=== PATIENT | female | born 1985 | race Caucasian/White ===

== ENCOUNTER 2020-09-11 22:17 | Inpatient (IN) | payer OTHER, SELFPAY ==
--- NOTE | 2020-09-11 22:29 | ED.CHESTPAIN ---
HPI - Chest Pain General Chief Complaint: Chest Pain Stated Complaint: breast pain Time Seen by Provider: 09/11/20 22:29 History of Present Illness HPI narrative: This is a 35-year-old female IVDA, alcohol, smoker all 3 of which were last done today. She last used 4 bags of heroin this afternoon. She states that she has had left-sided chest discomfort for the past 2 weeks but today states that it acutely worsened and she describes it as starting from behind her left breast and sharp oblique going into her chest. It worsens with movement as well as deep inspiration. In addition, she describes that her left breast she feels has increased in size and is more tender. She denies any injection into her breast tissue. Otherwise, she denies fevers, chills, cough, palpitations, nausea, vomiting, abdominal pain, diarrhea, urinary pain / burning /frequency. Related Data Allergies Allergy/AdvReac Type Severity Reaction Status Date / Time No Known Allergies Allergy Verified 09/11/20 23:25 [No Known Allergies*] Review of Systems Review of Systems: Pertinent positives and negatives as stated in HPI 10 point review systems is otherwise negative. PMFSH Past Medical History Source: nursing notes reviewed Medical History Drug abuse No known health problems Social History Social History Advance Directives: No Advance Directives Information Provided: Yes Physical Exam Vital Signs: Vital Signs: Vital Signs Temp Pulse Resp BP Pulse Ox 09/12/20 02:54 92 119/76 93 09/12/20 01:06 96 129/80 93 09/11/20 23:26 98.4 F 95 18 145/93 H Body Mass Index 28.3 VITAL SIGNS: Reviewed. GENERAL: Well developed, well nourished, in no acute distress. HEAD: Normocephalic/atraumatic, EYES: PERRLA, EOMI intact without pain, no nystagmus/pallor/icterus noted EARS: Ext canals without abnormality, TMs non-bulging and non-erythematous NOSE: Nares patent bilateral OROPHARYNX: no oral lesions noted, posterior pharynx clear and non-erythematous without noted tonsillar enlargement/erythema/exudates NECK: Supple, no adenopathy LUNGS: Normal breath sounds. No adventitious sounds or accessory muscle use. SpO2<> BREAST: (strip stamp straightener: Erma) On evaluation there is no erythema, induration, or appreciable mass when compared to the right breast but on palpation there is pain. CARDIOVASCULAR: Regular rate and rhythm without noted murmurs, no JVD or lower extremity edema. ABDOMEN: Soft, non-tender, non-distended with bowel sounds. No rigidity. No guarding. No palpable masses or hernias noted MUSCULOSKELETAL: No tenderness, deformities, or effusions noted on gross inspection. EXTREMITIES: No cyanosis, clubbing or edema. SKIN: Inspection of the skin reveals no rashes, ulcerations, jaundice, pallor, or petechiae. NEUROLOGIC: Alert and oriented x 4. Strength and sensation to light touch were grossly intact x 4. Course Course Course Narrative: This is a 35-year-old female with history and clinical presentation most concerning for possible pneumonia, or less likely costochondritis and doubt cardiac ischemia or PE. On review of all lab work there is a mild leukocytosis with left shift and taken in conjunction with a chest x-ray that shows opacifications and subsequent CT of the chest showing mid left lung pneumonia and SpO2 of 93% this case was discussed with the hospitalist for admission for IV antibiotics. There is some concern that this may in fact be a mass due to the absence fever and leukocytosis but given patient's underlying social history a remains unclear. On re-evaluation after patient received combination analgesics she has had good resolution of her pain. I discussed the case with the inpatient hospitalist who is agreeable for admission and patient is declining COVID-19 testing at this time. MDM - Chest Pain Lab Data Result diagrams: 09/11/20 23:52 09/12/20 01:31 Labs: Lab Results 09/11/20 09/11/20 09/11/20 Range/Units 23:52 23:52 23:52 WBC 11.0 H (4.8-10.8) X10*3/uL RBC 3.71 L (4.20-5.50) X10*6/uL Hgb 11.6 L (12.0-16.0) g/dl Hct 35.3 L (37-47) % MCV 95.1 (80-98) fL MCH 31.3 (27.0-33.0) pg MCHC 32.9 (31.0-35.0) g/dl RDW 12.4 (11.0-16.0) % Plt Count 252 (160-400) X10*3/uL MPV 9.5 (9.4-12.3) fL Immature Gran % (Auto) 0.4 (0.0-0.4) % Neut % (Auto) 82.3 H (45-73) % Lymph % (Auto) 10.3 L (20-40) % [place] % (Auto) 6.4 (2-11) % Eos % (Auto) 0.3 (0-4) % Baso % (Auto) 0.3 (0-2) % Lymph # (Auto) 1.1 L (1.2-4.9) X10*3/uL [place] # (Auto) 0.7 (0.1-1.2) X10*3/uL Eos # (Auto) 0.0 (0.0-0.4) X10*3/uL Baso # (Auto) 0.0 (0.0-0.2) X10*3/uL Abs Immat Gran (auto) 0.04 H (0.00-0.03) X10*3/uL Absolute Neuts (auto) 9.1 H (2.0-8.3) X10*3/uL Absolute Nucleated RBC 0.000 (0.0-0.012) X10*3/uL Nucleated RBC % (auto) 0.0 (0.0-0.2) /100WBC Sodium Cancelled Potassium Cancelled Chloride Cancelled Carbon Dioxide Cancelled Anion Gap Cancelled BUN Cancelled Creatinine Cancelled Estim Creat Clear Calc Cancelled Estimated GFR Cancelled Random Glucose Cancelled Calcium Cancelled Total Bilirubin Cancelled AST Cancelled ALT Cancelled Alkaline Phosphatase Cancelled Troponin I High Sens (<3.5-17.0) ng/L Total Protein Cancelled Albumin Cancelled Lipase Cancelled Urine Color YELLOW Urine Appearance CLEAR Urine pH 6.5 (5.0-8.0) Ur Specific [place] 1.025 (1.005-1.025) Urine Protein NEG (NEG-TRACE) MG/DL Urine Glucose (UA) NEG (NEG) MG/DL Urine Ketones 5 (NEG) MG/DL Urine Blood NEG (NEG) Urine Nitrite NEG (NEG) Ur Leukocyte Esterase NEG (NEG) Urine Test NEGATIVE (NEGATIVE) 09/11/20 09/12/20 Range/Units 23:52 01:31 WBC (4.8-10.8) X10*3/uL RBC (4.20-5.50) X10*6/uL Hgb (12.0-16.0) g/dl Hct (37-47) % MCV (80-98) fL MCH (27.0-33.0) pg MCHC (31.0-35.0) g/dl RDW (11.0-16.0) % Plt Count (160-400) X10*3/uL MPV (9.4-12.3) fL Immature Gran % (Auto) (0.0-0.4) % Neut % (Auto) (45-73) % Lymph % (Auto) (20-40) % [place] % (Auto) (2-11) % Eos % (Auto) (0-4) % Baso % (Auto) (0-2) % Lymph # (Auto) (1.2-4.9) X10*3/uL [place] # (Auto) (0.1-1.2) X10*3/uL Eos # (Auto) (0.0-0.4) X10*3/uL Baso # (Auto) (0.0-0.2) X10*3/uL Abs Immat Gran (auto) (0.00-0.03) X10*3/uL Absolute Neuts (auto) (2.0-8.3) X10*3/uL Absolute Nucleated RBC (0.0-0.012) X10*3/uL Nucleated RBC % (auto) (0.0-0.2) /100WBC Sodium 134 L Potassium 4.0 Chloride 101 Carbon Dioxide 25 Anion Gap 12 BUN 8 L Creatinine 0.59 Estim Creat Clear Calc 118.5 Estimated GFR > 60 Random Glucose 88 Calcium 8.6 Total Bilirubin 0.5 AST 35 H ALT 32 H Alkaline Phosphatase 72 Troponin I High Sens < 3.5 (<3.5-17.0) ng/L Total Protein 6.7 Albumin 4.0 Lipase < 4 L Urine Color Urine Appearance Urine pH (5.0-8.0) Ur Specific [place] (1.005-1.025) Urine Protein (NEG-TRACE) MG/DL Urine Glucose (UA) (NEG) MG/DL Urine Ketones (NEG) MG/DL Urine Blood (NEG) Urine Nitrite (NEG) Ur Leukocyte Esterase (NEG) Urine Test (NEGATIVE) Discharge Plan Discharge Clinical Impression: Pneumonia Qualifiers: Pneumonia type: due to unspecified organism Laterality: left Lung location: unspecified part of lung Qualified Code(s): J18.9 - Pneumonia, unspecified organism Patient Disposition: Admitted As Inpatient
--- NOTE | 2020-09-11 22:43 | ECG_ITS ---
Test Reason : CHEST PAIN Blood Pressure : / mmHG Vent. Rate : 097 BPM Atrial Rate : 097 BPM P-R Int : 144 ms QRS Dur : 080 ms QT Int : 336 ms P-R-T Axes : 055 -13 017 degrees QTc Int : 426 ms Normal sinus rhythm Left axis deviation Voltage criteria for left ventricular hypertrophy Abnormal ECG No previous ECGs available Referred By: Yessenia Ryder Electronically Signed By:STAN CAIN MD
--- NOTE | 2020-09-11 22:54 | XR_ITS ---
EXAMINATION: CHEST 2 VIEWS CLINICAL INFORMATION: Chest pain. COMPARISON: None. TECHNIQUE: PA and lateral views of the chest were obtained. FINDINGS: The cardiac silhouette is not enlarged. The mediastinal and hilar contours are unremarkable. There are neither pleural effusions nor pneumothoraces. There is an ill-defined opacity within the lateral left midlung. The osseous structures are unremarkable. IMPRESSION: Ill-defined opacity within the lateral left midlung. This is nonspecific and could correspond to pneumonia in the appropriate clinical setting, though follow-up is warranted as an underlying mass cannot be excluded. Recommendation is for a followup chest series to be obtained following treatment and/or resolution of symptoms to assure resolution of this appearance.
[2020-09-11 23:26] VITALS: BP 145/93; PULSE 95; RESP 18; TEMP 36.9; BMI 28.3
[2020-09-11 23:56] LABS: MANUAL DIFF FLAG NO
[2020-09-12] VITALS (7 sets, daily range): BP systolic 119–139; BP diastolic 75–97; PULSE 85–96; RESP 18; TEMP 36.2–37.1; O2SAT 93–97
[2020-09-12 00:09] LABS: Basophils Percent Auto 0.3 % (0-2); Eosinophils Percent Auto 0.3 % (0-4); Hematocrit 35.3 % (37-47); Hemoglobin 11.6 g/dl (12.0-16.0); Imm Gran Abs Auto 0.04 X10*3/uL (0.00-0.03); Imm Gran Pct Auto 0.4 % (0.0-0.4); Lymphocytes Absolute Auto 1.1 X10*3/uL (1.2-4.9); Lymphocytes Percent Auto 10.3 % (20-40); Mean Corpuscular HGB Conc 32.9 g/dl (31.0-35.0); Mean Corpuscular Hemoglobin 31.3 pg (27.0-33.0); Mean Corpuscular Volume 95.1 fL (80-98); Mean Platelet Volume 9.5 fL (9.4-12.3); Monocytes Absolute Auto 0.7 X10*3/uL (0.1-1.2); Monocytes Percent Auto 6.4 % (2-11); Neutrophils Absolute Auto 9.1 X10*3/uL (2.0-8.3); Neutrophils Percent Auto 82.3 % (45-73); Platelet Count 252 X10*3/uL (160-400); Red Blood Count 3.71 X10*6/uL (4.20-5.50); Red Cell Distribution Width 12.4 % (11.0-16.0)
[2020-09-12 00:11] LABS: Glucose Urine UA NEG (NEG); Leukocyte Esterase Urine NEG (NEG); Nitrite Urine NEG (NEG); PH 6.5 (5.0-8.0); Specific Gravity - Urine 1.025 (1.005-1.025); Urine Blood NEG (NEG); Urine Ketones 5 MG/DL (NEG); Urine Protein NEG (NEG-TRACE)
[2020-09-12 00:16] LABS: Appearance Urine CLEAR; Color Urine YELLOW
[2020-09-12 00:31] LABS: Troponin-I High Sensitivity < 3.5 ng/L (<3.5-17.0)
[2020-09-12 01:06] LABS: UPreg QC Valid YES; Urine Pregnancy NEGATIVE (NEGATIVE)
--- NOTE | 2020-09-12 01:06 | CT_ITS ---
EXAMINATION: CT CHEST WITH CONTRAST CLINICAL INFORMATION: Chest pain COMPARISON: X-ray 09/11/2020 TECHNIQUE: Multidetector volumetric CT imaging of the chest was obtained after the administration of 50 mL of Omnipaque 350 intravenous contrast without immediate adverse reactions. Axial MIP volume rendering provided. Sagittal and coronal reformatted images were obtained. This CT examination was performed using dose optimization techniques as appropriate, variously including the following: *Automated exposure control *Adjustment of mA and/or kV according to patient size (this includes techniques or standardized protocols for targeted exams where dose is matched to indication/reason for exam; i.e. extremities or head) *Use of iterative reconstruction technique DLP: 238 mGy-cm FINDINGS: LUNGS: Limited detailed assessment of the lung parenchyma due to respiratory motion artifact. There is a region of dense consolidation in the left upper lobe, in keeping with recent chest radiograph appearance. Patchy consolidation is present in the left lower lobe. Mild bibasilar atelectasis is present. MEDIASTINUM: The visualized thyroid gland is unremarkable. There are subcentimeter mediastinal lymph nodes within the range of normal variation. Cardiac size is within normal limits; no pericardial effusion. PLEURA: There is no pleural effusion. No pleural mass or thickening. AXILLA: No lymphadenopathy. UPPER ABDOMEN: Unremarkable OSSEOUS STRUCTURES: Unremarkable. IMPRESSION: Dense left upper lobe and patchy left lower lobe consolidations, in keeping with recent chest x-ray appearance and suspicious for pneumonia in the proper clinical setting. Radiographic followup after treatment/resolution of symptoms is recommended.
--- NOTE | 2020-09-12 01:07 | PC.NURSE ---
pt resting in bed, still experiencing 10/10 left sided chest wall steven. no dyspnea, nausea or diaphoresis. will ask provider for pain medication.
[2020-09-12 02:15] LABS: Alanine Aminotransferase 32 U/L (0-31); Alkaline Phosphatase 72 U/L (39-117); Anion Gap 12 (12-20); Aspartate Amino Transferase 35 U/L (5-31); Bilirubin Total 0.5 mg/dL (0.0-1.0); Blood Urea Nitrogen 8 mg/dL (9-16); Calcium 8.6 mg/dL (8.4-10.2); Carbon Dioxide 25 mmol/L (22-29); Chloride 101 mmol/L (96-108); Creatinine Clr Calc Pharmacy 118.5; Estimated Glomerular Filt Rate > 60; Glucose Random 88 mg/dL (60-115); Lipase < 4 U/L (8-78); Sodium 134 mmol/L (135-145); Total Protein 6.7 g/dL (6.5-8.0)
[2020-09-12] MEDS: Acetaminophen 325 MG TABLET 975 MG PO (02:51)
[2020-09-12] MEDS: Ketorolac Tromethamine 15 MG/ML VIAL IV ×3 (02:51→19:07)
[2020-09-12] MEDS: iohexoL 350 MG/ML 100 ML INFUS..BTL 65 ML IV (02:53)
[2020-09-12] MEDS: 0.9 % Sodium Chloride 1,000 ML 999 ML IVCONT (04:00)
--- NOTE | 2020-09-12 04:06 | PM.IMHP ---
History of Present Illness Date of Service: 09/12/20 Chief Complaint: chest pain 35 y/o female with known PMHX of smoker, alcohol abuser and Heroin abuse who presented from home due to left sided chest pain. Per history obtained from the patient, fort the past week has been having worsening left sided chest pain, sharp like, more prominent during inspiration, associated with mild SOB on exertion. Patient denies any chills/fever, nausea, vomiting, diarrhea, any sick contacts or any recent travel. On presentation to the ED patient is noted to be mildly hypertensive which improved without intervention, no evidence of fever, WBC of 11, NA of 134, saturation of oxygen 100% on room air. Covid test offered by ED staff but patient states that will think about it . CT chest obtained is suspicious for left lung consolidation concerning for underlying pneumonia. Medicine called for evaluation. Patient seen and examined at the bedside, ROS as above otherwise negative. Physical exam unremarkable. CURB 65: 0. No evidence of tremors on exam, mild tachycardia. PMHX: Smoker, Alcohol abuse, Heroin abuse PSx: none Toxic habits: As above Review of Systems Cardiovascular: Cardiovascular: Reports chest pain, Reports dyspnea and Reports dyspnea on exertion Respiratory: Respiratory: Reports dyspnea and Reports dyspnea on exertion PMFSH Medical History Drug abuse No known health problems Functional capacity: independent ambulation Social History Advance Directives: No Advance Directives Information Provided: Yes Meds Allergies Allergy/AdvReac Type Severity Reaction Status Date / Time No Known Allergies Allergy Verified 09/11/20 23:25 [No Known Allergies*] Physical Exam Vital Signs and Narrative: Vital Signs: Last Vital Signs Temp 98.4 F 09/11/20 23:26 Pulse 92 09/12/20 02:54 Resp 18 09/11/20 23:26 BP 119/76 09/12/20 02:54 Pulse Ox 93 09/12/20 02:54 Body Mass Index 28.3 Const: General: cooperative, healthy appearing and comfortable Orientation/consciousness: patient oriented x3 HENMT: Head: Yes normal to inspection Eyes: General: appearance normal, both eyes and all related structures Neck: Yes normal visual inspection Chest: Chest palpation & inspection: normal inspection of the chest Resp: Effort & Inspection: normal respiratory effort Cardio: Jugular venous distension: no JVD Rate: regular rate Rhythm: regular rhythm Heart sounds: S1 normal heart sound present and S2 normal heart sound present GI: Inspection: Yes normal to inspection Skin: General skin exam: no rashes or lesions noted Neuro: General: patient oriented x3 Cognition (Neuro): normal cognition Gait exam (Neuro): Normal gait present Motor exam (neuro): 5/5 motor strength present throughout Extrem: General: Yes normal to inspection Psych: Appearance: grossly normal Results Labs Labs: Laboratory Tests 09/11/20 09/11/20 09/11/20 23:52 23:52 23:52 WBC 11.0 H RBC 3.71 L Hgb 11.6 L Hct 35.3 L MCV 95.1 MCH 31.3 MCHC 32.9 RDW 12.4 Plt Count 252 MPV 9.5 Immature Gran % (Auto) 0.4 Neut % (Auto) 82.3 H Lymph % (Auto) 10.3 L [place] % (Auto) 6.4 Eos % (Auto) 0.3 Baso % (Auto) 0.3 Lymph # (Auto) 1.1 L [place] # (Auto) 0.7 Eos # (Auto) 0.0 Baso # (Auto) 0.0 Abs Immat Gran (auto) 0.04 H Absolute Neuts (auto) 9.1 H Absolute Nucleated RBC 0.000 Nucleated RBC % (auto) 0.0 Sodium Cancelled Potassium Cancelled Chloride Cancelled Carbon Dioxide Cancelled Anion Gap Cancelled BUN Cancelled Creatinine Cancelled Estim Creat Clear Calc Cancelled Estimated GFR Cancelled Random Glucose Cancelled Calcium Cancelled Total Bilirubin Cancelled AST Cancelled ALT Cancelled Alkaline Phosphatase Cancelled Troponin I High Sens Total Protein Cancelled Albumin Cancelled Lipase Cancelled Urine Color YELLOW Urine Appearance CLEAR Urine pH 6.5 Ur Specific [place] 1.025 Urine Protein NEG Urine Glucose (UA) NEG Urine Ketones 5 Urine Blood NEG Urine Nitrite NEG Ur Leukocyte Esterase NEG Urine Test NEGATIVE 09/11/20 09/12/20 23:52 01:31 WBC RBC Hgb Hct MCV MCH MCHC RDW Plt Count MPV Immature Gran % (Auto) Neut % (Auto) Lymph % (Auto) [place] % (Auto) Eos % (Auto) Baso % (Auto) Lymph # (Auto) [place] # (Auto) Eos # (Auto) Baso # (Auto) Abs Immat Gran (auto) Absolute Neuts (auto) Absolute Nucleated RBC Nucleated RBC % (auto) Sodium 134 L Potassium 4.0 Chloride 101 Carbon Dioxide 25 Anion Gap 12 BUN 8 L Creatinine 0.59 Estim Creat Clear Calc 118.5 Estimated GFR > 60 Random Glucose 88 Calcium 8.6 Total Bilirubin 0.5 AST 35 H ALT 32 H Alkaline Phosphatase 72 Troponin I High Sens < 3.5 Total Protein 6.7 Albumin 4.0 Lipase < 4 L Urine Color Urine Appearance Urine pH Ur Specific [place] Urine Protein Urine Glucose (UA) Urine Ketones Urine Blood Urine Nitrite Ur Leukocyte Esterase Urine Test Assessment and Plan (1) Pneumonia: Qualifiers: Laterality: left Lung location: unspecified part of lung Pneumonia type: due to unspecified organism Qualified Code(s): J18.9 - Pneumonia, unspecified organism Status: Acute (2) IV drug abuse: Status: Acute (3) Smoker: Status: Acute (4) Alcohol abuse: Status: Acute CT imaging findings as per above Will start with Rocephin for gram neg coverage and Zithromax for atypical coverage Follow up Bcx obtained in the ED as well as atypical PNA work up Follow up covid test if patient is agreeable if not then might consider Isolation at present Infectious disease consult in the am / Lithographic Photographer Apprentice consult in the am Observation as of now
--- NOTE | 2020-09-12 04:16 | PC.NURSE ---
pt understands plan for admission, understands that her chest xray and ct scan are abnormal. both er md and hospitalist discussed plan and need for covid swab before transfer to the floor. pt refusing covid swab, states it's personal when asked why she is hesitant.
--- NOTE | 2020-09-12 06:32 | PC.NURSE ---
report given to jasmine on the floor, awaiting rapid covid swab results for transport. pt comfortable, resting in bed and in no distress. pt's pain 3/10 and pt no longer grabbing her chest like she was when she first arrived. pt has spend an extended amount of time in the bathroom. Pt encouraged to ask providers for assistance if she feels like she may be experiencing withdrawl symptoms.
[2020-09-12] MEDS: 0.9 % Sodium Chloride Flush 3 ML SYRINGE IVFLUSH ×3 (09:04→23:48)
[2020-09-12] MEDS: cefTRIAXone sodium 1 GM in 0.9 % Sodium Chloride 50 ML IV (09:04)
[2020-09-12] MEDS: oxyCODONE HCl Immed Release 5 MG TABLET PO ×3 (09:38→20:38)
--- NOTE | 2020-09-12 09:47 | MHC.CM.PN ---
Female 35 DX CAP vs Lung Mass. She is independent all functional mobility. She lives with her grandparents. No HCP ED provided Pt declined. DP home no services family transport. CM will follow.
--- NOTE | 2020-09-12 09:50 | PM.CNPUL ---
History of Present Illness History of Present Illness Chief complaint: breast pain/LEFT MIDLUNG CAP VS MASS Review of Systems Constitutional: Constitutional: Denies night sweats ENT: Denies change in voice, Denies lip swelling, Denies mouth pain, Reports nasal congestion, Reports nasal discharge and Denies tongue swelling Cardiovascular: Cardiovascular: Reports chest pain Respiratory: Respiratory: Reports cough, Reports pain on inspiration, Reports pain with cough and Denies wheezing Gastrointestinal: Gastrointestinal: Denies abdominal pain Musculoskeletal: Musculoskeletal: Denies no additional musculoskeletal complaints Neurologic: Denies Neuro-related abnormal movements Psychiatric: Psychiatric: Denies no additional psychiatric complaints Hematologic/Lymphatic: Hematologic/Lymphatic: Denies easy bleeding and Denies lymphadenopathy Allergic/Immunologic: Allergic/Immunologic: Denies lip swelling, Denies tongue swelling and Denies wheezing PMFSH Past Medical History Medical History (Updated 09/12/20 @ 09:52 by Magdaleno Sam MD) Drug abuse No known health problems Pleuritic chest pain Functional capacity: independent ambulation Social History Social History Advance Directives: No Advance Directives Information Provided: Yes service: No Current occupational status: unemployed Meds Allergies Allergy/AdvReac Type Severity Reaction Status Date / Time No Known Allergies Allergy Verified 09/12/20 09:50 [No Known Allergies*] Home Medications Medication Instructions Recorded Confirmed Type No Known Home Meds 09/12/20 09/12/20 History Physical Exam Vital Signs: Vital Signs: Vital Signs Temp Pulse Resp BP Pulse Ox 09/12/20 08:14 97.1 F 85 18 134/97 H 97 09/12/20 06:33 98.7 F 09/12/20 02:54 92 119/76 93 09/12/20 01:06 96 129/80 93 09/11/20 23:26 98.4 F 95 18 145/93 H Body Mass Index 28.3 Const: General: alert HENMT: General nose exam: Abnormal external nose present and Nasal discharge present Eyes: Pupils: Equal, round and reactive pupils present Neck: Neck: Yes normal visual inspection, Yes full ROM and Yes no lymphadenopathy Chest: Chest palpation & inspection: normal inspection of the chest Resp: Auscultation: diminished lung sounds, bronchial breath sounds and egophony Cardio: Rate: regular rate Rhythm: regular rhythm Heart sounds: S1 normal heart sound present and S2 normal heart sound present GI: Palpation (GI): Soft to palpation and nontender Auscultation: normal bowel sounds : General: Yes no CVA tenderness Back/Spine/Pelvis: Back: no CVA tenderness Skin: General skin exam: rashes and/or lesions noted Neuro: Cranial nerves: Yes Equal, round and reactive pupils present Results Laboratory Findings CBC and BMP: 09/11/20 23:52 09/12/20 01:31 Abnormal lab findings: Abnormal Labs 09/11/20 09/12/20 23:52 01:31 WBC 11.0 H RBC 3.71 L Hgb 11.6 L Hct 35.3 L Neut % (Auto) 82.3 H Lymph % (Auto) 10.3 L Lymph # (Auto) 1.1 L Abs Immat Gran (auto) 0.04 H Absolute Neuts (auto) 9.1 H Sodium 134 L BUN 8 L AST 35 H ALT 32 H Lipase < 4 L Assessment and Plan (1) Pneumonia: Qualifiers: Laterality: left Lung location: unspecified part of lung Pneumonia type: due to unspecified organism Qualified Code(s): J18.9 - Pneumonia, unspecified organism Status: Acute Appears to be consistent with a dense lobar pneumonia With the air bronchograms in the acuity of the process. Masses with bronchograms could also be seen with lymphocytic proliferative processes Like BALT lymphoma. recommendations: - IV Toradol every 6 hours x 2 days - switched to doxycycline to treat for staph aureus, continue ceftriaxone - additional blood work requested - if the patient is no better plan for bronchoscopy in the next 24-48 hours (2) Pleuritic chest pain: Status: Acute
[2020-09-12 10:19] LABS: SARS COV2 PCR INHOUSE NEGATIVE (Negative)
[2020-09-12 12:05] LABS: HIV AB/AG Nonreactive (Nonreactive); HIV Num 1 0.06 S/CO (0.00-0.99)
[2020-09-12] MEDS: Doxycycline Hyclate 100 MG in 0.9 % Sodium Chloride 250 ML 250 MG IV ×2 (12:12→22:06)
--- NOTE | 2020-09-12 13:48 | P.PNIM_ITS ---
Subjective Subjective Date of Service: 09/12/20 Interval History: patient seen and examined at bedside patient reporting chest pain Physical Exam Vital Signs: Vital Signs: Vital Signs Temp Pulse Resp BP Pulse Ox 09/12/20 08:14 97.1 F 85 18 134/97 H 97 09/12/20 06:33 98.7 F 09/12/20 02:54 92 119/76 93 09/12/20 01:06 96 129/80 93 09/11/20 23:26 98.4 F 95 18 145/93 H Body Mass Index 28.3 Const: General: cooperative, healthy appearing and comfortable Or ientation/consciousness: patient oriented x3 HENMT: Head: Yes normal to inspection Neck: Neck: Yes normal visual inspection Chest: Chest palpation & inspection: normal inspection of the chest Resp: Effort & Inspection: normal respiratory effort Cardio: Jugular venous distension: no JVD Rate: regular rate Rhythm: re gular rhythm Heart sounds: S1 normal heart sound present and S2 normal heart sound present GI: Inspection: Yes normal to inspection Neuro: General: patient oriented x3 Gait exam (Neuro): Normal gait present Motor exam (neuro): 5/5 motor strength present throughout Extrem: General: Yes normal to inspection Psych: Appearance: grossly normal Objective Data Current Medications Generic Name Dose Route Start Last Admin Trade Name Freq PRN Reason Stop Dose Admin Heparin Sodium (Porcine) 5,000 unit 09/12/20 08:00 09/12/20 09:08 Heparin Sodium,Porcine 5,000 Unit/Ml Vial SUBCUT Not Given Q8H [facility] Ceftriaxone Sodium 1 gm/ 50 mls @ 100 mls/hr 09/12/20 07:54 09/12/20 10:51 Sodium Chloride IV Infused Q24H [facility] Infusion Doxycycline Hyclate 100 mg/ 250 mls @ 250 mls/hr 09/12/20 10:00 09/12/20 12:12 Sodium Chloride IV 250 mls/hr Q12H [facility] Administration Ketorolac Tromethamine 15 mg 09/12/20 13:00 09/12/20 13:29 Ketorolac Tromethamine 15 Mg/Ml Vial IV 15 mg Q6H [facility] Administration Omeprazole 20 mg 09/12/20 16:30 Omeprazole 20 Mg Capsule. PO BID@[id number],[id number] [facility] Oxycodone HCl 5 mg 09/12/20 09:15 09/12/20 09:38 Oxycodone Hcl Immed Release 5 Mg Tablet PO 5 mg Q4H PRN Administration Pain, Severe (Pain Scale 7-10) Sodium Chloride 3 ml 09/12/20 08:00 09/12/20 09:04 0.9 % Sodium Chloride Flush 3 Ml Syringe IVFLUSH 3 ml QSHIFT ABRAM Administration Labs CBC & Chem 7: 09/11/20 23:52 09/12/20 01:31 Assessment and Plan (1) Pneumonia: Status: Acute (2) IV drug abuse: Status: Acute (3) Smoker: Status: Acute (4) Alcohol abuse: Status: Acute Assessment and Plan: left upper lobe pneumonia with active IV drug use continue Rocephin and azithromycin follow-up blood cultures continue supportive management COVID PCR negative id and pulmonology following chest pain likely pleuritic from pneumonia continue supportive management IV drug use patient reported using heroin no signs of withdrawal at this time monitor closely for withdrawal DVT prophylaxis with heparin subcu
[2020-09-12 14:06] LABS: Erythrocyte Sedimentation Rate 28 MM/HR (0-20)
--- NOTE | 2020-09-12 14:13 | W.PM.IDCN ---
History of Present Illness Data of Consult Service Date: 09/12/20 Requesting physician: Filemon Hill Primary Care Provider: Sandra DAILEY Reason for consult: shortness of breath She presents to hospital with shortness of breath for 3 days and left [facility] She has had temperature to 100.5 No one else is ill She has chest CT TACOS and LLL infiltrate HIV test is negative Review of Systems Respiratory: Respiratory: Reports pain on inspiration and Reports pain with cough Neurologic: Denies Neuro-related abnormal movements PMFSH Past Medical History Medical History Drug abuse No known health problems Pleuritic chest pain Functional capacity: independent ambulation Social History Social History (Updated 09/12/20 @ 14:15 by Meme Louis MD) Household Members: Family Housing: House Do you presently have visiting nurse or other home services: No Alcohol intake: never Smoking Status: Current every day smoker Tobacco Type: Cigarette Smoked in Last 30 Days: Yes Use of substances other than those prescribed or required for medical reasons: Yes Substance Use Type: IV Drugs Substance Use Type Other:: heroine Substance Use Frequency: Daily Last Used Substance: Days (ago) Currently Displaying Signs/Symptoms of Drug Intoxication Withdrawal: No Any prior treatment program specific to substance use: Yes Have you been hit, kicked, punched, or otherwise hurt by someone within the past year? If so, by whom?: No Do you feel safe in your current relationship?: Yes Is there a partner from a previous relationship who is making you feel unsafe now?: No Are you made to feel afraid or neglected: No Advance Directives: No Advance Directives Information Provided: Yes Do you have thoughts of harming others: None Do you have a plan to hurt others: No Plan service: No Current occupational status: unemployed Meds Allergies Allergy/AdvReac Type Severity Reaction Status Date / Time No Known Allergies Allergy Verified 09/12/20 09:50 [No Known Allergies*] Home Medications Medication Instructions Recorded Confirmed Type No Known Home Meds 09/12/20 09/12/20 History Physical Exam Vital Signs: Vital Signs: Vital Signs Temp Pulse Resp BP Pulse Ox 09/12/20 08:14 97.1 F 85 18 134/97 H 97 09/12/20 06:33 98.7 F 09/12/20 02:54 92 119/76 93 09/12/20 01:06 96 129/80 93 09/11/20 23:26 98.4 F 95 18 145/93 H Body Mass Index 28.3 Const: General: healthy appearing Orientation/consciousness: oriented to person, oriented to place and oriented to time HENMT: Head: Yes normal to inspection Throat: Yes posterior oropharynx normal Resp: Effort & Inspection: normal respiratory effort Cardio: Rate: regular rate Rhythm: regular rhythm GI: Inspection: Yes normal to inspection and No Abdominal wall edema Palpation (GI): Soft to palpation and not firm Percussion: Yes normal to percussion Skin: General skin exam: no rashes or lesions noted Neuro: General: oriented to person, oriented to place and oriented to time Extrem: General: Yes normal to inspection Assessment and Plan (1) Pneumonia: Qualifiers: Laterality: left Lung location: unspecified part of lung Pneumonia type: due to unspecified organism Qualified Code(s): J18.9 - Pneumonia, unspecified organism Status: Acute She has community acquired pneumonia She has no specific organism She is HIV negative She may have strep pneumonia,Legionella other organisms Would continue Ceftriaxone or Doxycycline probable 7 days totally ,may change to po Ceftin and Doxycycline (2) Pleuritic chest pain: Status: Acute (3) IV drug abuse: Status: Acute (4) Smoker: Status: Acute Results Labs CBC & Chem 7: 09/11/20 23:52 09/12/20 01:31 Labs: Short CBC 09/11/20 Range/Units 23:52 WBC 11.0 H (4.8-10.8) X10*3/uL Hgb 11.6 L (12.0-16.0) g/dl Hct 35.3 L (37-47) % Plt Count 252 (160-400) X10*3/uL BMP 09/11/20 09/12/20 23:52 01:31 Sodium Cancelled 134 L Potassium Cancelled 4.0 Chloride Cancelled 101 Carbon Dioxide Cancelled 25 BUN Cancelled 8 L Creatinine Cancelled 0.59 Calcium Cancelled 8.6 Liver Function 09/11/20 09/12/20 Range/Units 23:52 01:31 Total Bilirubin Cancelled 0.5 AST Cancelled 35 H ALT Cancelled 32 H Alkaline Phosphatase Cancelled 72 Albumin Cancelled 4.0 Urine 09/11/20 Range/Units 23:52 Urine Color YELLOW Urine Appearance CLEAR Urine pH 6.5 (5.0-8.0) Ur Specific [place] 1.025 (1.005-1.025) Urine Protein NEG (NEG-TRACE) MG/DL Urine Glucose (UA) NEG (NEG) MG/DL
[2020-09-12] MEDS: Omeprazole 20 MG CAPSULE.DR PO (16:24)
--- NOTE | 2020-09-13 | XR_ITS ---
EXAMINATION: XR CHEST CLINICAL INFORMATION: Pneumonia. Follow-up. COMPARISON: Chest radiograph 09/11/2020, CT chest 09/12/2020. TECHNIQUE: Portable upright AP view of the chest was obtained. FINDINGS: There is dense consolidation peripheral lingula left upper lobe similar to prior study. There is some patchy airspace opacity left base with associated subsegmental atelectasis, borderline increased. No effusion. There is coarsening bronchiolar markings. No right airspace consolidation or groundglass opacity. The cardiac and hilar and mediastinal contours and visualized bony structures are unremarkable. IMPRESSION: 1. Peripheral consolidation lingula left upper lobe similar to prior exam. 2. Patchy airspace opacity and subsegmental atelectasis left posterior base slightly increased.
[2020-09-13] MEDS: Ketorolac Tromethamine 15 MG/ML VIAL IV ×4 (01:07→18:14)
[2020-09-13] MEDS: Omeprazole 20 MG CAPSULE.DR PO ×2 (06:12→15:41)
[2020-09-13 06:28] LABS: MANUAL DIFF FLAG NO
[2020-09-13 06:42] LABS: Basophils Percent Auto 0.4 % (0-2); Eosinophils Absolute Auto 0.2 X10*3/uL (0.0-0.4); Eosinophils Percent Auto 2.6 % (0-4); Hemoglobin 10.4 g/dl (12.0-16.0); Imm Gran Abs Auto 0.05 X10*3/uL (0.00-0.03); Imm Gran Pct Auto 0.6 % (0.0-0.4); Lymphocytes Absolute Auto 1.6 X10*3/uL (1.2-4.9); Lymphocytes Percent Auto 18.3 % (20-40); Mean Corpuscular HGB Conc 32.5 g/dl (31.0-35.0); Mean Corpuscular Volume 95.2 fL (80-98); Mean Platelet Volume 9.9 fL (9.4-12.3); Monocytes Percent Auto 11.3 % (2-11); Neutrophils Absolute Auto 5.7 X10*3/uL (2.0-8.3); Neutrophils Percent Auto 66.8 % (45-73); Platelet Count 246 X10*3/uL (160-400); Red Blood Count 3.36 X10*6/uL (4.20-5.50); Red Cell Distribution Width 12.2 % (11.0-16.0); White Blood Count 8.5 X10*3/uL (4.8-10.8)
[2020-09-13 07:08] VITALS: BP 137/81; PULSE 75; RESP 18; TEMP 36.7; O2SAT 94
[2020-09-13 07:47] LABS: Anion Gap 12 (12-20); Blood Urea Nitrogen 8 mg/dL (9-16); Carbon Dioxide 26 mmol/L (22-29); Chloride 104 mmol/L (96-108); Creatinine Clr Calc Pharmacy 122.7; Estimated Glomerular Filt Rate > 60; Glucose Random 102 mg/dL (60-115); Potassium 3.8 mmol/l (3.3-5.1); Sodium 138 mmol/L (135-145)
[2020-09-13] MEDS: cefTRIAXone sodium 1 GM in 0.9 % Sodium Chloride 50 ML IV (08:13)
[2020-09-13] MEDS: 0.9 % Sodium Chloride Flush 3 ML SYRINGE IVFLUSH ×2 (08:14→15:41)
--- NOTE | 2020-09-13 08:52 | PM.PNPUL ---
Subjective Subjective Interval history: the patient was seen and examined. Overall she feels a little better. She still having significant pleuritic chest discomfort on the left side. Did get relief from the Toradol. He she has not been coughing and denies any chest congestion. Her COVID-19 test was negative. Objective Data Labs CBC & Chem 7: 09/13/20 05:42 09/13/20 05:42 Labs: Laboratory Results - last 24 hr 09/12/20 09/12/20 09/12/20 06:14 10:45 10:45 WBC RBC Hgb Hct MCV MCH MCHC RDW Plt Count MPV Immature Gran % (Auto) Neut % (Auto) Lymph % (Auto) [place] % (Auto) Eos % (Auto) Baso % (Auto) Lymph # (Auto) [place] # (Auto) Eos # (Auto) Baso # (Auto) Abs Immat Gran (auto) Absolute Neuts (auto) Absolute Nucleated RBC Nucleated RBC % (auto) ESR 28 H Sodium Potassium Chloride Carbon Dioxide Anion Gap BUN Creatinine Estim Creat Clear Calc Estimated GFR Random Glucose Coronavirus (PCR) NEGATIVE HIV 1&2 Ab/P24 Ag 4thGn Nonreactive 09/13/20 09/13/20 05:42 05:42 WBC 8.5 RBC 3.36 L Hgb 10.4 L Hct 32.0 L MCV 95.2 MCH 31.0 MCHC 32.5 RDW 12.2 Plt Count 246 MPV 9.9 Immature Gran % (Auto) 0.6 H Neut % (Auto) 66.8 Lymph % (Auto) 18.3 L [place] % (Auto) 11.3 H Eos % (Auto) 2.6 Baso % (Auto) 0.4 Lymph # (Auto) 1.6 [place] # (Auto) 1.0 Eos # (Auto) 0.2 Baso # (Auto) 0.0 Abs Immat Gran (auto) 0.05 H Absolute Neuts (auto) 5.7 Absolute Nucleated RBC 0.000 Nucleated RBC % (auto) 0.0 ESR Sodium 138 Potassium 3.8 Chloride 104 Carbon Dioxide 26 Anion Gap 12 BUN 8 L Creatinine 0.57 Estim Creat Clear Calc 122.7 Estimated GFR > 60 Random Glucose 102 Coronavirus (PCR) HIV 1&2 Ab/P24 Ag 4thGn Review of Systems Constitutional: Denies night sweats Denies change in voice, Denies lip swelling, Denies mouth pain, Reports nasal congestion, Reports nasal discharge and Denies tongue swelling Cardiovascular: Reports chest pain Respiratory: Denies chest congestion, Denies cough, Denies hemoptysis, Reports pain on inspiration and Reports pain with cough Gastrointestinal: Denies abdominal pain Musculoskeletal: Denies no additional musculoskeletal complaints Denies Neuro-related abnormal movements Psychiatric: Denies no additional psychiatric complaints Hematologic/Lymphatic: Denies easy bleeding and Denies lymphadenopathy Allergic/Immunologic: Denies lip swelling and Denies tongue swelling Physical Exam Vital Signs: Vital Signs: Vital Signs Temp Pulse Resp BP Pulse Ox 09/13/20 07:08 98.1 F 75 18 137/81 94 09/12/20 23:58 98.1 F 86 18 133/87 93 09/12/20 19:26 98.0 F 91 18 139/77 97 09/12/20 15:38 98.7 F 86 18 122/75 97 Body Mass Index 28.3 Const: General: alert HENMT: General nose exam: Abnormal external nose present and Nasal discharge present Eyes: Pupils: Equal, round and reactive pupils present Neck: Neck: Yes normal visual inspection, Yes full ROM and Yes no lymphadenopathy Chest: Chest palpation & inspection: normal inspection of the chest Resp: Auscultation: no crackles, no wheezes, diminished lung sounds, no bronchial breath sounds and No rub present Cardio: Rate: regular rate Rhythm: regular rhythm Heart sounds: S1 normal heart sound present and S2 normal heart sound present GI: Palpation (GI): Soft to palpation and nontender Auscultation: normal bowel sounds : General: Yes no CVA tenderness Back/Spine/Pelvis: Back: no CVA tenderness Skin: General skin exam: rashes and/or lesions noted Neuro: Cranial nerves: Yes Equal, round and reactive pupils present Assessment and Plan Assessment and plan (1) Pleuritic chest pain: Status: Acute Assessment and Plan: A chest x-ray today to assess the airspace disease and also to make sure that is not transforming into a parapneumonic effusion. (2) Pneumonia: Problem details: based on the appearance this appears to be a severe community-acquired pneumonia. Has air bronchograms suggesting of the parenchymal infiltration, therefore not consistent with lung mass. Again, smoldering lymphomas could also present in this fashion. The distribution of the airspace disease is not consistent with tuberculosis in my opinion. Status: Acute Assessment and Plan: continue antibiotics I waiting Legionella urine antigen, streptococcal urine antigen, and mycoplasma serology (3) Smoker: Status: Acute Time Spent With Patient Time: Total time spent is greater than 50% in coordination of care (as documented) at patient's floor/unit and/or counseling patient: Time with patient: 15 - 24 minutes
[2020-09-13 08:57] LABS: Calcium 7.9 mg/dL (8.4-10.2)
[2020-09-13] MEDS: Doxycycline Hyclate 100 MG in 0.9 % Sodium Chloride 250 ML 250 MG IV ×2 (09:10→22:00)
[2020-09-13 11:01] VITALS: BP 119/80; PULSE 85; RESP 18; TEMP 36.8; O2SAT 97
--- NOTE | 2020-09-13 12:53 | MHC.CM.PN ---
Goal for dc is home with no anticipated need for skilled home services, once medically cleared for dc. CM will continue to follow.
--- NOTE | 2020-09-13 14:21 | MHC.PIE ---
P IV SITE TENDER AND PT C/O BURNING WITH FLUSHING. I OFFERED TO REMOVE AND RESTART. PT AGREEABLE AT FIRST BUT THEN STATED NOT NOW E PT AWARE THAT IV SITE WILL HAVE TO BE CHANGED TODAY
--- NOTE | 2020-09-13 15:09 | HO.PM.IMPN ---
Subjective Subjective Interval History: patient seen and examined at bedside patient still reporting chest pain worsening with breathing Physical Exam Vital Signs: Vital Signs: Vital Signs Temp Pulse Resp BP Pulse Ox 09/13/20 11:01 98.2 F 85 18 119/80 97 09/13/20 07:08 98.1 F 75 18 137/81 94 09/12/20 23:58 98.1 F 86 18 133/87 93 09/12/20 19:26 98.0 F 91 18 139/77 97 09/12/20 15:38 98.7 F 86 18 122/75 97 Body Mass Index 28.3 Const: General: cooperative, healthy appearing and comfortable Orientation/consciousness: patient oriented x3 HENMT: Head: Yes normal to inspection Neck: Neck: Yes normal visual inspection Chest: Chest palpation & inspection: normal inspection of the chest Resp: Effort & Inspection: normal respiratory effort Cardio: Jugular venous distension: no JVD Rate: regular rate Rhythm: regular rhythm Heart sounds: S1 normal heart sound present and S2 normal heart sound present GI: Inspection: Yes normal to inspection Neuro: General: patient oriented x3 Gait exam (Neuro): Normal gait present Motor exam (neuro): 5/5 motor strength present throughout Extrem: General: Yes normal to inspection Psych: Appearance: grossly normal Objective Data Current Medications Generic Name Dose Route Start Last Admin Trade Name Freq PRN Reason Stop Dose Admin Heparin Sodium (Porcine) 5,000 unit 09/12/20 08:00 09/13/20 08:14 Heparin Sodium,Porcine 5,000 Unit/Ml Vial SUBCUT Not Given Q8H ABRAM Ceftriaxone Sodium 1 gm/ 50 mls @ 100 mls/hr 09/12/20 07:54 09/13/20 09:09 Sodium Chloride IV Infused Q24H ABRAM Infusion Doxycycline Hyclate 100 mg/ 250 mls @ 250 mls/hr 09/12/20 10:00 09/13/20 10:33 Sodium Chloride IV Infused Q12H ABRAM Infusion Ketorolac Tromethamine 15 mg 09/12/20 13:00 09/13/20 13:02 Ketorolac Tromethamine 15 Mg/Ml Vial IV 15 mg Q6H ABRAM Administration Omeprazole 20 mg 09/12/20 16:30 09/13/20 06:12 Omeprazole 20 Mg Capsule.Dr PO 20 mg BID@0630,1630 ABRAM Administration Oxycodone HCl 5 mg 09/12/20 09:15 09/12/20 20:38 Oxycodone Hcl Immed Release 5 Mg Tablet PO 5 mg Q4H PRN Administration Pain, Severe (Pain Scale 7-10) Sodium Chloride 3 ml 09/12/20 08:00 09/13/20 08:14 0.9 % Sodium Chloride Flush 3 Ml Syringe IVFLUSH 3 ml QSHIFT ABRAM Administration Labs CBC & Chem 7: 09/13/20 05:42 09/13/20 05:42 Assessment and Plan (1) Pneumonia: Problem details: Status: Acute (2) IV drug abuse: Status: Acute (3) Smoker: Status: Acute (4) Alcohol abuse: Status: Acute Assessment and Plan: left upper lobe pneumonia with active IV drug use continue Rocephin and azithromycin blood culture pending continue supportive management COVID PCR negative id and pulmonology following chest pain likely pleuritic from pneumonia continue supportive management IV drug use patient reported using heroin no signs of withdrawal at this time monitor closely for withdrawal DVT prophylaxis with heparin subcu
[2020-09-13 16:00] VITALS: BP 135/93; PULSE 68; RESP 14; TEMP 36.7; O2SAT 98
[2020-09-13 20:34] VITALS: BP 119/85; PULSE 62; RESP 14; TEMP 36.7; O2SAT 99
[2020-09-14] VITALS: BP 142/92; PULSE 68; RESP 18; TEMP 37; O2SAT 98
[2020-09-14 04:46] VITALS: BP 146/72; PULSE 88; RESP 20; TEMP 37; O2SAT 98
[2020-09-14 08:00] VITALS: BP 147/92; PULSE 79; RESP 20; TEMP 36.7; O2SAT 95
[2020-09-14] MEDS: cefTRIAXone sodium 1 GM in 0.9 % Sodium Chloride 50 ML IV (08:10)
[2020-09-14] MEDS: Ketorolac Tromethamine 15 MG/ML VIAL IV (08:10)
[2020-09-14] MEDS: 0.9 % Sodium Chloride Flush 3 ML SYRINGE IVFLUSH (08:10)
[2020-09-14] MEDS: Doxycycline Hyclate 100 MG in 0.9 % Sodium Chloride 250 ML 175 MG IV (09:14)
--- NOTE | 2020-09-14 09:18 | P.PNPL_ITS ---
Subjective Subjective Interval history: the patient was seen on exam. Overall the patient is feeling better. Denies any significant pleuritic discomfort this morning. Her x-ray was about the same. Possibly small trace pleural effusion that is likely parapneumonic. But she is afebrile her white count normalized and her symptoms are improving. based on the presentation of the patient, her imaging studies th ere is nothing to suggest tuberculosis. Therefore, I would not pursue further evaluation for tuberculosis. Objective Data Labs CBC & Chem 7: 09/13/20 05:42 09/13/20 05:42 Review of Systems Constitutional: Denies night sweats Denies change in voice, Denies lip swelling, Denies mouth pain, Reports nasal congestion, Reports nasal discharge and Denies tongue swelling Cardiovascular: Denies chest pain Respiratory: Reports cough and Reports pain on inspiration Gastrointestinal: Denies abdominal pain Musculoskeletal: Denies no additional musculoskeletal complaints Denies Neuro-related abnormal movements Psychiatric: Denies no additional psychiatric complaints Hematologic/Lymphatic: Denies easy bleeding and Denies lymphadenopathy Allergic/Immunologic: Denies lip swelling and Denies tongue swelling Physical Exam Vital Signs: Vital Signs: Vital Signs Temp Pulse Resp BP Pulse Ox 09/14/20 08:00 98.1 F 79 20 147/92 H 95 09/14/20 04:46 98.6 F 88 20 146/72 H 98 09/14/20 00:00 98.6 F 68 18 142/92 H 98 09/13/20 20:34 98.1 F 62 14 119/85 99 09/13/20 16:00 98.1 F 68 14 135/93 H 98 09/13/20 11:01 98.2 F 85 18 119/80 97 Body Mass Index 28.3 Const: General: alert HENMT: General nose exam: Abnormal external nose present and Nasal discharge present Eyes: Pupils: Equal, round and reactive pupils present Neck: Neck: Yes normal visual inspection, Yes full ROM and Yes no lymphadenopathy Chest: Chest palpation & inspection: normal inspection of the chest Resp: Auscultation: diminished lung sounds Cardio: Rate: regular rate Rhythm: regular rhythm Heart sounds: S1 normal heart sound present and S2 normal heart sound present GI: Palpation (GI): Soft to palpation and nontender Auscultation: normal bowel sounds : General: Yes no CVA tenderness Back/Spine/Pelvis: Back: no CVA tenderness Skin: General skin exam: rashes and/or lesions noted Neuro: Cranial nerves: Yes Equal, round and reactive pupils present Assessment and Plan Assessment and plan (1) Pleuritic chest pain: Problem details: Due to pneumonia and likely small parapneumonic effusion Status: Acute Assessment and Plan: better (2) Pneumonia: Problem details: Status: Acute Assessment and Plan: continue Doxy/Ceftin x 10 days Needs close f/u Time Spent With Patient Time: Total time spent is greater than 50% in coordination of care (as documented) at patient's floor/unit and/or counseling patient: Time with patient: 15 - 24 minutes
--- NOTE | 2020-09-14 12:10 | MHC.CM.PN ---
Patient will be discharged home today no services. Family will provide transport.
--- NOTE | 2020-09-14 13:52 | P.DS_ITS ---
DS: Providers Provider Date of admission: 09/12/20 04:20 Primary care physician: Sandra Tipton Consults: 09/12/20 07:54 Consult to Physician Routine Consulting Provider: Infectious Disease Reason for consultation: CAP Has provider been notified: No Consult to Pulmonology Routine Consulting Provider: [facility] [place] Pulmonology Services Reason for consultation: left midlung cap vs mass Has provider been notified: No DS: Diagnosis Discharge Diagnosis (1) Pleuritic chest pain: Status: Acute Problem details: Due to pneumonia and likely small parapneumonic effusion (2) Pneumonia: Status: Acute Problem details: DS: Summary Hospital Course Hospital Course: 35-year-old female with IV drug use admitted with pleuritic chest pain and pneumonia, patient was started on IV antibiotic, pulmonology was consulted ordered T spot, but TB was less likely, patient's symptoms improved slowly, patient was stable and saturating well on room air, COVID PCR was negative, patient was stable discharged home on p.o. antibiotic, patient will follow-up pulmonology as outpatient Time Spent with Patient Time attestation: Total time spent providing and/or coordinating discharge services: Physical Exam Vital Signs: Vital Signs: Vital Signs Temp Pulse Resp BP Pulse Ox 09/14/20 08:00 98.1 F 79 20 147/92 H 95 09/14/20 04:46 98.6 F 88 20 146/72 H 98 09/14/20 00:00 98.6 F 68 18 142/92 H 98 09/13/20 20:34 98.1 F 62 14 119/85 99 09/13/20 16:00 98.1 F 68 14 135/93 H 98 Body Mass Index 28.3 Const: General: cooperative, healthy appearing and comfortable Orientation/consciousness: patient oriented x3 HENMT: Head: Yes normal to inspection Neck: Neck: Yes normal visual inspection Chest: Chest palpation & inspection: normal inspection of the chest Resp: Effort & Inspection: normal respiratory effort Cardio: Jugular venous distension: no JVD Rate: regular rate Rhythm: regular rhythm Heart sounds: S1 normal heart sound present and S2 normal heart sound present GI: Inspection: Yes normal to inspection Neuro: General: patient oriented x3 Gait exam (Neuro): Normal gait present Motor exam (neuro): 5/5 motor strength present throughout Extrem: General: Yes normal to inspection Psych: Appearance: grossly normal Discharge Plan Discharge Anticipated Discharge Date/Time: 09/14/20 11:49 Patient Disposition: Home, Self-Care Referrals: Sandra Tipton [Primary Care Provider] - Discharge Medications: New cefuroxime axetil 500 mg tablet 500 mg PO BID 10 Days Qty: 20 RF: 0 doxycycline monohydrate 100 mg tablet 100 mg PO BID Qty: 20 RF: 0 Discharge Orders: Discharge Order (Routine); Ordered 09/14/20 Ordered By: Filemon Hill Diet: advance to your usual diet Activity on Discharge: As tolerated Discharge Date/Time: 09/14/20 15:04 Visit Report Forms: Patient Portal Discharge page Care Plan Goals: see discharge instructions Health Concerns: see discharge instructions Plan of Treatment: see discharge instructions
[2020-09-15 13:02] LABS: Anti Nuclear Antibody Pattern Nuclear, Nucleolar; Anti Nuclear Antibody Screen POSITIVE (NEGATIVE)
[2020-09-16 14:06] LABS: Mycoplasma Pneumoniae - IgG 2.32 (<=0.90); Mycoplasma Pneumoniae - IgM 482 U/mL (<770)
[2020-09-16 16:22] LABS: Strep Pneumo Ag urine Not Detected (Not Detected)
[2020-09-16 17:31] LABS: Legionella Pneumophila Ab IgM <1:256
[2020-09-17 00:26] LABS: Legionella Ag Urine Not Detected (Not Detected)
== END 2020-09-14 15:04 | disposition home or self-care (01) | DRG 139 ==
LOC: HO.ED 09-12 04:12 → HO.IMC 09-12 04:32
PROVIDERS: Hospitalist; Internal Medicine; Admitting Provider Internal Medicine; Emergency Provider Student in an Organized Health Care Education/Training Program; PCP Internal Medicine; Visit Provider Internal Medicine
DX: J18.1 Lobar pneumonia, unspecified organism (principal); J91.8 Pleural effusion in other conditions classified elsewhere; F10.10 Alcohol abuse, uncomplicated; F17.210 Nicotine dependence, cigarettes, uncomplicated; Z20.828 Contact with and (suspected) exposure to other viral communicable diseases; F11.10 Opioid abuse, uncomplicated; Z71.6 Tobacco abuse counseling
CPT/HCPCS: 36415; 71045; 71046; 71260; 80048; 80053; 81003; 81025; 83690; 84484; 85025; 85652; 86038; 86039; 86481; 86713; 86738; 87389; 87449; 87635; 87899; 93005; 96361; 96374; 99225; 99285; J1885